=== PATIENT | male | born 1960 | race Two or more races ===

== ENCOUNTER 2019-03-16 16:06 | Emergency (ER) | payer MEDICAID, OTHER ==
[~2019-03-16] VITALS: Ht 180.3 cm; Wt 140.2 kg
[2019-03-16] MEDS ORDERED: MECLIZINE HCL 25 MG TAB PO ONE (16:30)
[2019-03-16] MEDS ORDERED: cloNIDine HCL 0.1 MG TAB PO ONE ×2 (16:30→18:15)
[2019-03-16 17:13] LABS: Basophils # (auto) 0 uL; Basophils % (auto) 0.4 % (0.0-2.0); Eosinophils # (auto) 0.1 uL; Hemoglobin 13.9 g/dL (13.5-17.5); Lymphocytes # (auto) 1.7 uL; Lymphocytes % (auto) 28.3 % (10.0-50.0); Mean Corpuscular Hemoglobin 29.3 pg (28.0-32.0); Mean Corpuscular Hgb Conc. 33.1 g/dL (32.0-36.0); Mean Corpuscular Volume 88.5 fL (80.0-100.0); Monocytes # (auto) 0.4 uL; Monocytes % (auto) 7.1 % (0.0-12.0); Neutrophils # (auto) 3.8 uL; Neutrophils % (auto) 62.2 % (37.0-80.0); Nucleated Red Blood Cells % 0.1 %; Platelet Count (auto) 249 10^3/uL (140-450); Red Blood Cells 4.75 10^6/uL (4.5-5.90); Red Cell Distribution Width 14.4 % (11.8-14.3); White Blood Cell 6.1 10^3/uL (4.4-10.8)
[2019-03-16 17:36] LABS: Alanine Aminotransferase 109 U/L (16-61); Albumin 3.5 g/dL (3.4-5.0); Anion Gap 6 (5-15); Aspartate Aminotransferase 72 U/L (15-37); Blood Urea Nitrogen 12 mg/dL (7-18); Calcium 9.6 mg/dL (8.5-10.1); Carbon Dioxide 26 mmol/L (21-32); Chloride 109 mmol/L (98-107); GFR African American 137 mL/min; GFR Non-African American 113 mL/min; Glucose 222 mg/dL (74-106); Potassium 4.3 mmol/L (3.5-5.1); Sodium 141 mmol/L (136-145)
[2019-03-16 17:40] LABS: Alkaline Phosphatase 78 U/L (45-117); Bilirubin, Total 0.3 mg/dL (0.2-1.0); Total Protein 7.3 g/dL (6.4-8.2)
[2019-03-16 18:00] VITALS: BP 161/101
== END 2019-03-16 17:58 | disposition home or self-care (01) ==
LOC: ER 16:09
DX: E11.65 Type 2 diabetes mellitus with hyperglycemia (principal); I10 Essential (primary) hypertension; Z88.0 Allergy status to penicillin; Z90.49 Acquired absence of other specified parts of digestive tract
CPT/HCPCS: 36415; 70450; 80053; 84484; 85025; 93005; 99284; J8597

== ENCOUNTER 2019-09-17 09:45 | Emergency (ER) | payer MEDICAID ==
[~2019-09-17] VITALS: Ht 180.3 cm; Wt 136.1 kg
[2019-09-17 12:55] VITALS: BP 139/79
[2019-09-17 13:00] LABS: Urine Bacteria FEW /hpf (None Seen); Urine Blood Negative /uL (Negative); Urine Hyaline Cast FEW /lpf (0 - 2); Urine Specific Gravity 1.021 (1.001-1.035); Urine WBC 4 /hpf (0 - 3)
== END 2019-09-17 13:22 | disposition home or self-care (01) ==
LOC: ER 09:45
DX: N48.1 Balanitis (principal); B37.9 Candidiasis, unspecified; E11.9 Type 2 diabetes mellitus without complications; I10 Essential (primary) hypertension; Z90.49 Acquired absence of other specified parts of digestive tract; Z90.89 Acquired absence of other organs; Z88.0 Allergy status to penicillin
CPT/HCPCS: 81001; 81002

== ENCOUNTER 2020-07-24 16:10 | Emergency (ER) | payer BC, MEDICAID ==
[~2020-07-24] VITALS: Ht 154.9 cm; Wt 129.3 kg
[2020-07-24 16:28] VITALS: BP 174/89
[2020-07-24] MEDS ORDERED: KETOROLAC TROMETH 60MG/2ML VIAL IM ONE (17:45)
== END 2020-07-24 18:10 | disposition home or self-care (01) ==
LOC: ER 16:10
DX: M47.22 Other spondylosis with radiculopathy, cervical region (principal); M47.812 Spondylosis without myelopathy or radiculopathy, cervical region; E11.9 Type 2 diabetes mellitus without complications; I10 Essential (primary) hypertension; Z88.0 Allergy status to penicillin
CPT/HCPCS: 72040; 96372; 99283; J1885